=== PATIENT | male | born 1965 ===

== ENCOUNTER 2022-03-02 19:55 | Outpatient (REF) | payer BC, SELFPAY ==
[2022-03-06 16:57] LABS: Testosterone, Total 208 ng/dL (240-950)
== END 2022-03-02 19:56 | disposition home or self-care (01) ==
LOC: LBN 19:55
PROVIDERS: Visit Provider Urology
DX: E29.1 Testicular hypofunction (principal); N52.9 Male erectile dysfunction, unspecified
CPT/HCPCS: 84403

== ENCOUNTER 2025-03-22 09:02 | Outpatient (CLI) | payer MEDICAID, SELFPAY | END 2025-03-22 09:03 | disposition home or self-care (01) | LOC: LBO 09:02 | PROVIDERS: PCP Family Medicine; Visit Provider Urology | DX: E29.1 Testicular hypofunction (principal) | CPT/HCPCS: 36415; 84403 ==